=== PATIENT | male | born 1980 | race Caucasian/White ===

== ENCOUNTER → 2024-07-29 | Outpatient (CLI) | payer BC ==
[2024-08-01 10:11] LABS: Angiotensin-1 Converting Enz. 51 U/L (8-52)
[2024-08-01 13:58] LABS: C-ANCA <1:20 Titer (<1:20)
== END | disposition home or self-care (01) ==
LOC: LABWHC1 10:34
PROVIDERS: ATTEND Otolaryngology Facial Plastic Surgery
DX: R68.2 Dry mouth, unspecified (principal)
CPT/HCPCS: 36415; 82164; 86038; 86255